=== PATIENT | female | born 1995 | race African-American/Black ===

== ENCOUNTER 2018-06-21 15:40 | Emergency (ER) | payer MEDICAID, SELFPAY ==
[2018-06-21] MEDS ORDERED: Dexamethasone 10 MG/ML VIAL ONE (15:57)
[2018-06-21] MEDS ORDERED: Albuterol Sulfate 2.5 mg/3 ml Neb ONE (17:13)
[2018-06-21] MEDS ORDERED: Acetaminophen 325 MG TAB PO PRN (17:25)
[2018-06-21] MEDS ORDERED: Ondansetron HCl/PF 4 MG/2 ML Vial IVP PRN (17:25)
[2018-06-21] MEDS ORDERED: Acetaminophen 650 MG Suppository PR PRN (17:25)
[2018-06-21] MEDS ORDERED: Enoxaparin Sodium 40 MG/0.4 ML SYRINGE SC SCH (17:25)
[2018-06-21] MEDS ORDERED: Ondansetron ODT 4 MG TAB PO PRN (17:25)
[2018-06-21] MEDS ORDERED: Albuterol Sulfate 2.5 mg/3 ml Neb NEB PRN (17:25)
[2018-06-21 17:28] LABS: Anion Gap 12 mmol/L (10-20); BUN (Urea Nitrogen) 12 mg/dL (7.0-18.7); Calc. Creatinine Clearance 0 mL/min (70-130); Calcium 9.9 mg/dL (7.8-10.44); Carbon Dioxide 27 mmol/L (22-29); Chloride 103 mmol/L (98-107); Estimated GFR-MDRD Greater than 90; Glucose 104 mg/dL (70-105); Hemoglobin 14.3 g/dL (12.0-16.0); Mean Corpuscular Hemoglobin 29.1 pg (27.0-31.0); Mean Corpuscular Volume 91.1 fL (78.0-98.0); Mean Platelet Volume 9.1 fL (7.4-10.4); Platelet Count 134 thou/uL (130-400); Potassium 3.8 mmol/L (3.5-5.1); RBC Distribution Width 12.3 % (11.5-14.5); Red Blood Cell (RBC) Count 4.93 mill/uL (4.20-5.40); Sodium 138 mmol/L (136-145); White Blood Cell (WBC) Count 6.9 thou/uL (4.8-10.8)
[2018-06-21 18:01] LABS: Band 1 % (5-11); Eosinophils 1 % (0-10); Lymphocytes 45 % (21-51); MDiff Complete? YES; Monocytes 2 % (0-10); Neutrophil 51 % (42-75); PLT Morphology Comment Appears Adequate; RBC Morphology Normal
[2018-06-21] MEDS ORDERED: guaiFENesin ER 600 MG TAB PO SCH (21:00)
[2018-06-21] MEDS ORDERED: Famotidine/PF 20 mg/2ml Vial SLOW IVP SCH (21:00)
[2018-06-22] MEDS ORDERED: Enoxaparin Sodium 40 MG/0.4 ML SYRINGE SC SCH (09:00)
== END 2018-06-21 17:28 | disposition home or self-care (01) ==
LOC: ERS 15:40
DX: J45.901 Unspecified asthma with (acute) exacerbation (principal); Z79.899 Other long term (current) drug therapy
CPT/HCPCS: 36415; 80048; 85025; 94640; 94644; J1100; J7611; J7620